=== PATIENT | female | born 1975 | race Caucasian/White ===

== ENCOUNTER 2024-04-14 15:05 | Emergency (ER) | payer OTHER ==
[2024-04-14 15:36] VITALS: RESP 18; BMI 29.8
[2024-04-14 17:18] VITALS: BP 143/96; PULSE 103; TEMP 98.7
[2024-04-14 18:23] LABS: HEMOGLOBIN 12.5 G/dL (10.7-15.3); MCH 29.8 pg (25.7-33.7); MCHC 32.8 g/dl (32.0-36.0); PLATELET COUNT 317.6 10^3/uL (134-434); RBC 4.18 10^6/uL (3.60-5.2); RDW 13.5 % (11.6-15.6); WHITE BLOOD COUNT 22.5 10^3/uL (4.0-10.8)
[2024-04-14 18:35] LABS: ALBUMIN 3.6 g/dl (3.4-5.0); ALK PHOS 97 U/L (45-117); ANION GAP 8 mmol/L (4-13); BILIRUBIN,TOTAL 0.3 mg/dl (0.2-1); CALCIUM 9.1 mg/dl (8.5-10.1); CHLORIDE 102 mmol/L (98-107); CO2 26 mmol/L (21-32); CREATININE 1.1 mg/dl (0.6-1.3); GLUCOSE,RANDOM 108 mg/dl (74-106); POTASSIUM 3.8 mmol/L (3.5-5.1); SGOT/AST 22 U/L (15-37); SGPT/ALT 28 U/L (7-52); SODIUM 136 mmol/L (136-145); TOT PROT 7.2 g/dl (6.4-8.2)
[2024-04-14 19:04] LABS: ADD RBC MORPHOLOGY YES
[2024-04-14 19:05] LABS: PLATELET ESTIMATE ADEQUATE
== END 2024-04-14 20:41 | disposition home or self-care (01) ==
LOC: FER 15:05
DX: D72.829 Elevated white blood cell count, unspecified (principal); R53.83 Other fatigue; R68.83 Chills (without fever); R53.1 Weakness; Z20.822 Contact with and (suspected) exposure to COVID-19
CPT/HCPCS: 0241U-QW; 36415; 71045-TC-FY; 80053; 81003; 81025; 84439; 84443; 85025; 87040; 87086; 99284-25

== ENCOUNTER 2024-06-15 14:44 | Emergency (ER) | payer OTHER ==
[2024-06-15 15:06] VITALS: BMI 29.8
[2024-06-15 15:56] LABS: BASO % 1.1 % (0-2.0); EOS % 6.8 % (0-4.5); HEMATOCRIT 39.4 % (32.4-45.2); HEMOGLOBIN 13.2 GM/dL (10.7-15.3); LYMPH % 21.8 % (8-40); MCH 29.7 pg (25.7-33.7); MCHC 33.4 g/dl (32.0-36.0); MEAN CELL VOLUME 89.1 fl (80-96); MEAN PLT VOLUME 7.5 fl (7.5-11.1); MONO % 8.5 % (3.8-10.2); NEUT % 61.8 % (42.8-82.8); PLATELET COUNT 351 10^3/uL (134-434); RBC 4.43 M/mm3 (3.60-5.2); RDW 14.7 % (11.6-15.6); WHITE BLOOD COUNT 7.9 K/mm3 (4.0-10.0)
[2024-06-15 16:30] LABS: POTASSIUM 3.8 mmol/L (3.5-5.1)
[2024-06-15 16:33] LABS: ALBUMIN 3.4 g/dl (3.4-5.0); BLOOD UREA NITROGEN 16.5 mg/dL (7-18); CALCIUM 9.1 mg/dL (8.5-10.1)
[2024-06-15 16:36] LABS: CREATININE 1.2 mg/dL (0.55-1.3)
[2024-06-15 16:38] LABS: BILIRUBIN,TOTAL 0.3 mg/dL (0.2-1); TOT PROT 7.4 g/dl (6.4-8.2)
[2024-06-15 16:48] VITALS: BP 151/89; PULSE 82; RESP 16; TEMP 98.6
== END 2024-06-15 20:02 | disposition home or self-care (01) ==
LOC: JER 14:44
DX: R05.9 Cough, unspecified (principal); R07.2 Precordial pain; M54.6 Pain in thoracic spine
CPT/HCPCS: 36415; 71046-TC-FY; 80053; 85025; 93005; 93010; 99285-25